=== PATIENT | female | born 1965 | race Caucasian/White ===

== ENCOUNTER 2020-02-28 21:06 | Inpatient (IN) | payer OTHER ==
[~2020-02-28] VITALS: Ht 160 cm; Wt 95.3 kg
[2020-02-28] MEDS ORDERED: LITHIUM CARBON150 MG PO (23:03)
[2020-02-28] MEDS ORDERED: OLANZAPINE10 MG PO (23:04)
[2020-02-28] MEDS ORDERED: HYDROCHLOROTHIA25 M1 PO (23:04)
--- NOTE | 2020-02-28 23:45 | NUR ---
VIKY HERNDAEZ a 55 year old F admitted via ambulance from the EMERGENCY ROOM as a emergency 72 hr. hold admission. Arrived on unit at 2345. ALLERGIES: BACTRIM. Vital signs are: [id number] 118/76. The client signed the following forms with stated understanding: Authorization For The Release of Medical Information, Clothing List, Consent and Release Forms/Receipt of Rights, Acknowledgement of Advance Directive Information, Behavioral Health Consent Form, and Informed Consent of Medications. Admitted under the services of [facility]. A search was conducted and hazardous articles were removed. Client was oriented to the unit. MADINA PEOPLES
--- NOTE | 2020-02-29 01:00 | NUR ---
DR. PIMENTEL UPDATED THAT PT ON UNIT
[2020-02-29 01:32] VITALS: BP 118/76
[2020-02-29 01:55] VITALS: BP 118/76
--- NOTE | 2020-02-29 02:10 | NUR ---
PT COOPERATIVE WITH ASSESSMENTS, STATED SHE JUST NEEDS TO STEP AWAY AND TAKES BREAKS, PT DID RAMBLE WITH SPEECH AND HAVE FLIGHT OF IDEAS. SPEECH PATTERN VARIED WITH SPEED RATE AND RYTHM, SHE IS AWARE HOW THE UNIT WORKS DUE TO MULTIPLE STAY AT IN PATIENT FACILITY. PT WOULD LAUGH IN APPROPRIATLY WITH INTERACTIONS. WHEN SHOWN HER ROOM SHE SHOUTED IN EXCITED CHILDLIKE VOICE "OH HOW FABULOUS, I HAVE BEEN WANTING TO SEE [facility] FOR SO LONG, I CAN'T BELIEVE I AM FINALLY HERE!" Pt states she is tired and did "fall asleep" randomly during assessment, put would answer select questions with increased energy then others. at this time pt is resting him her room, check q15 min checks. Continue to assist pt to adjust to unit.
--- NOTE | 2020-02-29 05:28 | NUR ---
Pt lying in bed laughing and talking outloud to self or unseen others. frequently. Laughing is not appropriate, pt unable to state what or who she is talking to. Continue to monitor, pt sleep has been broken due to restless and poor sleep pattern.
--- NOTE | 2020-02-29 05:49 | NUR ---
Patient slept approx. 2 hours throughout shift but then restless,laughing and talking out loud. Q 15 minute safety checks continued and maintained.
--- NOTE | 2020-02-29 06:12 | NUR ---
Patient having visual and auditory hallucinations at this time as per patient saying "Darnelle,clean this shit up. You heard them". Patient looking to other areas of the room while saying this. No one else in the room except patient and nurse. Will continue to monitor moods/behaviors
[2020-02-29 06:50] LABS: ALBUMIN 3.8 gm/dl (3.1-4.5); ALKALINE PHOSPHATASE 73 U/L (45-117); BUN 14 mg/dl (7-24); CHLORIDE 99 mmol/L (98-107); CHOLESTEROL 171 mg/dL (<200); CREATININE 0.97 mg/dL (0.55-1.02); HDL CHOLESTEROL 56 mg/dl (40-60); LDL CHOLESTEROL 97 mg/dL (9-159); SGOT/AST 44 IU/L (3-35); SGPT/ALT 29 U/L (12-78); SODIUM 134 mmol/L (136-145); TOTAL PROTEIN 7.9 gm/dL (6.4-8.2); TRIGLYCERIDES 92 mg/dl (<150); VLDL CHOLESTEROL 18 mg/dL (6-40)
[2020-02-29 06:53] LABS: BASO # 0.1 10*3/uL (0.0-0.1); BASO % 0.4 % (0.0-1.0); EOS # 0.3 10*3/uL (0.0-0.4); EOS % 2.4 % (1.0-4.0); HEMATOCRIT 37.5 % (37.0-47.0); HEMOGLOBIN 12.4 g/dl (12.0-16.0); LYMPH # 2.5 10*3/uL (1.3-4.4); LYMPH % 19.3 % (27.0-41.0); MEAN CELL VOLUME 89.7 fl (81.0-99.0); MEAN CORPUSCULAR HGB 29.7 pg (27.0-31.0); MEAN CORPUSCULAR HGB CONC 33.1 g/dl (33.0-37.0); MONO # 0.7 10*3/uL (0.1-1.0); MONO % 5.7 % (3.0-9.0); NEUT # 9.2 10*3/uL (2.3-7.9); NEUT % 71.8 % (47.0-73.0); PLATELET COUNT AUTOMATED 361 10*3/uL (130-400); RED BLOOD COUNT 4.18 10*6/uL (4.10-5.10); RED CELL DISTRI WIDTH 13.6 % (0-14.5); WHITE BLOOD COUNT 12.9 10*3/uL (4.8-10.8)
[2020-02-29 08:00] VITALS: BP 124/68
--- NOTE | 2020-02-29 08:25 | NUR ---
Patient awake and in room with no c/o discomfort. Respirations easy and regular. Vital signs stable. No overt distress. Frida Lopez, CHRISTIANE made aware of medical medications needing reconciled, states "ok". NIECY SALINAS
--- NOTE | 2020-02-29 08:30 | NUR ---
TREATMENT PLAN MEETING WAS HELD WITH DR. HARDIN, ROBER ADDISON RN, GAGE DESIGNER-S AND GLOBAL COMPENSATION DIRECTOR. PLAN FOR DISCHARGE NEXT WEEK. PT. WILL RETURN HOME.
--- NOTE | 2020-02-29 12:56 | NUR ---
Faxed admission clinical to [facility]. Awaiting response.
--- NOTE | 2020-02-29 13:36 | NUR ---
Patient was pleasant with this filing writer during initial contact. Pt stated that she was at [facility] because of professional overload. Pt also referred to this as professional burn-out later in the conversation. Pt stated that she is here for Dr Chen to fix her so that she can go home. When this filing writer attempted to comment on that, pt immediately stated, "I don't want to be babied. Everyone is babying me. I don't need that. I just want to be left alone to get better." When asked if this filing writer could assist pt with anything, pt stated that she wanted the puzzle that she was working on in the other room. It was determined that pt meant the foam blocks. This filing writer left pt with the foam blocks. After leaving pt in the fireplace room, as this filing writer stood behind the nurse's station, pt began talking loudly about what she needed for her care, that play therapy is for kids, and talking about people. It did not appear that pt was interacting with the unseen. Rather, it seemed that pt was speaking her thoughts out loud. During interaction with this filing writer, pt made no direct eye contact. She spoke calmly until left alone.
--- NOTE | 2020-02-29 18:23 | NUR ---
PT IS TANGENTIAL, LOUD, VULGAR SPEECH. PT IS OVERTLY TALKING TO UNSEEN OTHERS; HOWEVER, IT IS UNCLEAR AT THIS TIME IF PT IS ALSO RESPONDING. ASSESSED ORIENTATION LEVEL, MOOD, AFFECT. PT REDIRECTED AND PROVIDED WITH DIVERSIONAL ACTIVITIES. ASSESSED FOR HALLUCINATIONS/DELUSIONS/SI, INTENT OR PLAN. PT IS ALERT, ORIENTED X 4. MOOD IS IRRITABLE AND LABILE, AFFECT CONGRUENT WITH MOOD. PT IS REDIRECTABLE FOR SHORT PERIODS OF TIME, DIVERSIONAL ACTIVITIES OF COLORING ALSO EFFECTIVE FOR BRIEF PERIODS OF TIME. PT DENIES HALLUCINATIONS, BUT IS HYPERVERBAL AND TANGENTIAL, YELLING OUT LOUD AND TALKING TO UNSEEN OTHERS. PT DOES NOT APPEAR TO BE RESPONDING TO UNSEEN OTHERS AT THIS TIME. PT IS QUICKLY IRRITATED AND BEGINS TO YELL AND CUSS TO NOONE IN PARTICULAR. PT DOES DENY SUICIDAL IDEATION, INTENT AND PLAN. STATES SHE ISN'T DEPRESSED, BUT EVERYONE ELSE'S BRAIN IS "FROZEN" WHILE HERS KEEPS MOVING, "JUST LIKE MAGAN AND ANAMARIA". WILL CONTINUE TO ADMINISTER MEDICATIONS ORDERED. WILL CONTINUE TO MONITOR MOOD AND BEHAVIORS, REDIRECTING AND DIVERTING APPROPRIATE. WILL CONTINUE TO ENCOURAGE PT TO EXPRESS INTERNAL THOUGHT PROCESS. Q 15 MIN MONITORING FOR SAFETY.
[2020-02-29 20:01] VITALS: BP 129/81
--- NOTE | 2020-02-29 21:20 | NUR ---
P-LABILE, FOI, LOUD SPEECH, AUDITORY HALLUCINATIONS. I-ASSESS ORIENTATION, MOOD, AND BEHAVIOR. PRESENT REALITY AND REDIRECT NEEDED. PROVIDE 1:1 WITH THERAPEUTIC INTERVENTIONS. ENCOURAGE MEDICATION COMPLIANCE AND EDUCATE. MONITOR SLEEP. R-PATIENT ALERT AND ORIENTED X4. PT ISOLATIVE TO ROOM SINCE BEGINNING OF SHIFT, WHEN APPROACHED BY STAFF PATIENT GUARDED, IRRITABLE, STATING "SO YOU'RE BOTHERING ME NOW, WHEN ARE YOU GOING TO BOTHER ME AGAIN SO I KNOW AHEAD OF TIME?". PT OVERTLY TALKING TO UNSEEN OTHERS WHILE ALONE, LOUD, HYPERVERBAL, TANGENTIAL. PT RECEPTIVE TO REDIRECTION FOR SHORT PERIODS, ARGUMENTATIVE AT TIMES, NO COMBATIVE BEHAVIORS NOTED. PT MEDICATION COMPLIANT WITHOUT DIFFICULTY AFTER REVIEW. PT VOICES NO SI/HI OR PAIN. APPETITE REMAINS POOR THIS SHIFT, REFUSED HS SNACK, INTAKE AND FLUIDS ENCOURAGED. PT AMBULATORY WITH A STEADY GAIT, INDEPENDENT IN ADL'S, CONTINENT OF BOWEL AND BLADDER. PT CURRENTLY LAYING DOWN WITH EYES CLOSED, RESPIRATIONS EASY AND REGULAR, NO SIGNS OR SYMPTOMS OF DISTRESS NOTED. P-CONTINUE TO MONITOR MOOD AND BEHAVIORS. MAINTAIN Q 15 MIN CHECKS AND PRN FOR SAFETY.
--- NOTE | 2020-02-29 23:19 | NUR ---
24 HOUR CHART CHECK COMPLETED.
--- NOTE | 2020-03-01 04:17 | NUR ---
PATIENT AWAKE, REQUESTING BASIN AND TOILETRIES TO "WASH UP". PT ALSO ASKING QUESTIONS IN REGARDS TO HER TREATMENT TEAM. PT ASSISTED WITH BOTH INTERVENTIONS WITHOUT DIFFICULTY. PT THEN WENT TO DINING ROOM REQUESTED TO GET A CUP OF WATER AND WATCH TV. PT CURRENTLY SITTING AT A DINING ROOM TABLE, TALKING TO UNFORESEEN OTHERS. SPEECH LOUD, TANGENTIAL, WITH FOI. UNABLE TO REDIRECT AT THIS TIME, WILL CONTINUE TO MONITOR FOR ESCALATING BEHAVIORS.
--- NOTE | 2020-03-01 05:43 | NUR ---
PATIENT OBSERVED ON Q 15 MIN SAFETY CHECKS TO HAVE SLEPT APPROX 3.5 HOURS UNINTERRUPTED. NO SIGNS OR SYMPTOMS OF DISTRESS NOTED.
[2020-03-01 07:11] VITALS: BP 124/56
--- NOTE | 2020-03-01 08:13 | NUR ---
Patient eating with no c/o discomfort. Respirations easy and regular. Vital signs stable. No overt distress. Pt was provided with 1:1 throughout breakfast and pt was able to consume 100% of breakfast with 360cc of fluids. Pt able to express self t/o interaction, paranoid and tenriism delusions present. Pt presented with reality and provided with emotional support. NIECY SALINAS
--- NOTE | 2020-03-01 08:39 | NUR ---
PATIENT SIGNED VOLUNTARY CONSENT FORM. TREATMENT PROVIDED WITH PATEINT. PATIENT AGREEABLE TO CURRENT TREATMENT PLAN.
--- NOTE | 2020-03-01 09:48 | NUR ---
Treatment team meeting with Prema Isaacs BAKERY DECORATOR, RN, and SCOURER-S for initial meeting. Patient later joined treatment team with BAKERY DECORATOR, RN, and SCOURER-S. Discussed pt's plan for treatment and pt's goals. Discharge plan is for pt to return home next week and follow at [facility].
--- NOTE | 2020-03-01 10:08 | NUR ---
KENYATTA WONG CNP ON UNIT TO ASSESS PATIENT.
--- NOTE | 2020-03-01 11:23 | NUR ---
Patient participated in group activity this AM with 2 RNs and this TRAFFIC LAW ATTORNEY-S. Patient was hyperverbal as she shared about her work, education, family, likes and dislikes, places she had previously resided and visited. Pt's speech rate was normal to slightly rapid. Pt interacted well with staff but had low tolerance for another patient. She did express interest in others as she asked about likes/dislikes and also did express concern about high school seniors missing end of school year activities. Pt did voice repetitive thoughts as she spoke of her treatment plan numerous times.
--- NOTE | 2020-03-01 16:19 | NUR ---
Shift chart check completed.
--- NOTE | 2020-03-01 18:32 | NUR ---
PT IS HYPERVERBAL, TANGENTIAL, ANABAPTISM AND PARANOID DELUSIONAL. ASSESSED ORIENTATION LEVEL, MOOD, AFFECT. PT REDIRECTED AND PROVIDED WITH DIVERSIONAL ACTIVITIES. ASSESSED FOR HALLUCINATIONS/DELUSIONS/SI, INTENT OR PLAN. ADMINISTERED MEDICATIONS PER ORDER. PT IS ALERT, ORIENTED X 4. MOOD IS IRRITABLE AND LABILE, AFFECT CONGRUENT WITH MOOD. PT PARTICIPATED IN AM GROUP, HYPERVERBAL, BUT APPROPRIATE. ABLE TO FOCUS ON TASK WELL PROVIDE SOME INSIGHT INTO HER WORK AND MENTAL HEALTH. PT DENIES HALLUCINATIONS, BUT IS HYPERVERBAL AND TANGENTIAL, YELLING OUT LOUD TO "THE DEVIL" TO "GET ON OUT OF MY ROOM" OTHERS. PT DOES DENY SUICIDAL IDEATION, INTENT AND PLAN. STATES SHE ISN'T DEPRESSED. MEDICATION COMPLIANT WITHOUT DIFFICULTY, EDUCATION PROVIDED. WILL CONTINUE TO ADMINISTER MEDICATIONS ORDERED. WILL CONTINUE TO MONITOR MOOD AND BEHAVIORS, REDIRECTING AND DIVERTING APPROPRIATE. WILL CONTINUE TO ENCOURAGE PT TO EXPRESS INTERNAL THOUGHT PROCESS. Q 15 MIN MONITORING FOR SAFETY.
[2020-03-01 20:00] VITALS: BP 132/72
--- NOTE | 2020-03-01 23:01 | NUR ---
P-LABILE, IRRITABLE, FLIGHT OF IDEAS, TANGENTIAL, RELIGIOUSLY PREOCCUPIED I-REDIRECTION WITH 1:1 THERAPEUTIC INTERVENTIONS. EDUCATE AND ENCOURAGE MEDICATION COMPLIANCE. R-PATIENT MEDICATION COMPLIANT AT HS. PATIENT RESTLESS INTERMITTENTLY THROUGHOUT SHIFT. PATIENT PREOCCUPIED AND WANTING TO DISCUSS TREATMENT PLAN WITH THIS NURSE. PATIENT STATING "I GET THE BOOTY JUICE ON SATURDAY AND IT WILL BE FOR A MONTH AND THEN SATURDAY I GET ANOTHER SHOT OF THE BOOTY JUICE AND THEN REEVALUATION WILL BE DONE ON SATURDAY. PATIENT STATES "I'M ONLY HERE SO I CAN DECOMPRESS AND I TRUST DR AHRDIN AND IT WILL BE ALRIGHT. PATIENT IRRITABLE WHEN AROUND ANOTHER PEER. PATIENT IN HALLWAY STATING "THE LORD PLEASE BE WITH ME AND DO NOT LET HER UPSET MY DAY". PATIENT REDIRECTED AWAY FROM PEER AND THERAPEUTIC INTERVENTIONS WERE PROVIDED. PATIENT COLORED A PICTURE AND STATED "THIS IS A WORK OF ART". PATIENT IN QUEIT ROOM MAKING REPEATIVE STATEMENTS "CHICKENHEAD" AND "NAVEEN CROSS APPLESAUCE". PATIENT PROVIDED NOURISHEMENT AND FLUIDS AT HS. PATIENT INFORMED THAT URINE SPECIMENT STILL IS NEEDED FOR COLLECTION AND WILL INFORM THIS NURSE WHEN ABLE TO VOID. P-CONTINUE TO ENCOURAGE MEDICATION COMPIANCE, ENCOURAGE GROUP THERAPY WHILE AWAKE
[2020-03-02 02:47] LABS: COLOR STRAW (YELLOW)
[2020-03-02 02:48] LABS: BILIRUBIN NEGATIVE (NEGATIVE); BLOOD NEGATIVE (NEGATIVE); CLARITY CLEAR (CLEAR); GLUCOSE NEGATIVE (NEGATIVE); KETONE NEGATIVE (NEGATIVE); LEUKO ESTERASE NEGATIVE (NEGATIVE); NITRITE NEGATIVE (NEGATIVE); SPECIFIC GRAVITY 1.005 (1.005-1.030); UROBILINOGEN 0.2 E.U./dl (0.2-1.0)
[2020-03-02 02:50] LABS: BACTERIA TRACE; RBC 0-2 rbc/hpf (0-2); WBC 0-2 wbc/hpf (0-5)
--- NOTE | 2020-03-02 06:51 | NUR ---
PATIENT SLEPT 4 HOURS OF INTERRUPTED SLEEP THROUGHOUT SHIFT. Q 15 MINUTE CHECKS MAINTAINED. 24 HR chart check completed.
[2020-03-02 07:36] VITALS: BP 126/58
--- NOTE | 2020-03-02 07:40 | NUR ---
Patient pleasant with this medical underwriter this AM as pt reviewed her treatment plan. Discussed pt's FMLA document. Took pt's breakfast tray to her and placed it where pt requested. Pt voiced appreciation. As this CORPORATE LEGAL INTERN-S walked away, pt stated to herself when she saw another pt's tray being taken to another room, "We don't need to be eating at the same time. We don't need to eat together. She's going to put mini monsters on my food." Observed pt take her own tray tray and move to the back of the activity room. Pt then stood midway in the room and began speaking loudly, "Get behind me, satan. Get behind me, satan."
--- NOTE | 2020-03-02 07:50 | NUR ---
Patient feeding self breakfast at this time. Respirations easy and regular. Vital signs stable. No overt distress. Update given to Delio PHTNP-. EDI YOUNG
--- NOTE | 2020-03-02 08:30 | NUR ---
TREATMENT PLAN MEETING WAS HELD WITH ROBER ADDISON RN, NOVELTY PRINTING MACHINE OPERATOR-S AND BAKE ROOM WORKER. PLAN FOR DISCHARGE NEXT WEEK. PT. WILL RETURN HOME AT DISCHARGE.
--- NOTE | 2020-03-02 09:25 | NUR ---
SPOKE WITH AZAEL DEL TORO CHIEF MECHANICAL OFFICER REGARDING PT REQUESTING TO WATCH THE NEWS, AZAEL STATED THAT DUE TO THE LIMITED CENSUS. PT IS ABLE TO WATCH THE NEWS 30 MINS IN THE MORNING AND 30 MINS AT NIGHT. WE WILL CONTINUE TO MONITOR PT BEHAVIORS FOR ANY INCREASED AGITATION OR ANXIETY.
--- NOTE | 2020-03-02 09:45 | NUR ---
PT RECEIVED INVEGA SUSTENNA TO LEFT DELTOID, TOLERATED WITHOUT ISSUE.
--- NOTE | 2020-03-02 09:51 | NUR ---
AZAEL DEL TORO DIRECTOR DATA ANALYTICS CALLED IN AND STATED THAT AFTER SPEAKING WITH DR HARDIN HE HAS DECIDED THAT THERE IS NOT TO BE ANY TIME RESTRICTIONS ON WATCHING THE NEWS, IF IT BEGINS TO ADD TO PT DELUSIONS THEN WE PROCESS THESE WITH THE PT AND MONITOR IT ON A CASE BY CASE BASIS. NO FURTHER ORDERS AT THIS TIME.
--- NOTE | 2020-03-02 11:30 | NUR ---
Pt participated in activity in group room this AM with this RN, second RN and CONCRETE FINISHING MACHINE OPERATOR-S, pt actively participated and painted a birdhouse. Pt was pleasant with staff, attempted to encourage female peer to participate as well. Pt calmly and appropriately voiced her desire to maintain her "personal space" when female peer got too close. Pt seemed to enjoy socializing with staff about different shops and places to eat around this area and in the [place] area. Pt also spoke about her work and schooling.
--- NOTE | 2020-03-02 13:03 | NUR ---
Patient participated in AM group with two RNs and this CONCRETE MIXER OPERATOR HELPER-S. Pt was focused and easily engaged in conversation. Observed pt being more understanding with other female pt. This technical publications writer observed pt making one statement that was nonsensical but other statements/remarks voiced by pt were appropriate.
--- NOTE | 2020-03-02 15:49 | NUR ---
P: PT IRRITABLE AT TIMES WITH STAFF AND PEERS, MOOD IS LABILE. PT DISRUPTIVE THIS AM DURING BREAKFAST YELLING OUT "GET BEHIND ME SATAN GET BEHIND ME." PT OBSERVED TO BE TALKING TO AND RESPONDING TO UNSEEN OTHERS. PT PREOCCUPIED WITH TREATMENT PLAN AND MEDICATION. I: PROVIDE EMOTIONAL SUPPORT AND 1:1 FOR PT TO VOICE FEELINGS, ENCOURAGE MED COMPLIANCE AND PROVIDE MED EDUCATION, ENCOURAGE GROUP PARTICIPATION AND SOCIALIZATION. R: PT ALERT TO PERSON, PLACE, TIME AND SITUATION. PT MED COMPLIANT WITHOUT DIFFICUTLY, MED EDUCATION PROVIDED. PT CALM, MOOD REMAINS LABILE AT TIMES, MUCH LESS IRRITABLE THIS AFTERNOON WITH STAFF AND PEERS. PT PARTICIPATED IN MORNING GROUP WITH STAFF. PT CONTINUES TO TALK TO AND RESPOND TO UNSEEN OTHERS AT TIMES. PT AMBULATORY THROUGHOUT UNIT, GAIT STEADY. PT CONTINENT OF BOWEL AND BLADDER. PT SHOWERED THIS SHIFT, PT INDEPENDENT WITH ADL'S. P: MONITOR PT BEHAVIORS ON Q15 MIN SAFETY CHECKS, ENCOURAGE MED COMPLIANCE, PROVIDED PT WITH MEDICINE EDUCATION HANDOUTS, PROVIDE EMOTIONAL SUPPORT AND 1:1 FOR PT TO VOICE FEELINGS, ENCOURAGE GROUP PARTICIPATION AND SOCIALIZATION.
[2020-03-02 20:00] VITALS: BP 109/78
--- NOTE | 2020-03-02 21:45 | NUR ---
P-TANGENTIAL, PREOCCUPIED I-REDIRECTION WITH 1:1 THERAPEUTIC INTERVENTIONS. EDUCATE AND ENCOURAGE MEDICATION COMPLIANCE. R-PATIENT MEDICATION COMPLIANT AT HS. PATIENT INFORMED THIS NURSE "I GOT MY BOOTY JUICE IN MY ARM AND IT DOESN'T HURT. MY MOUTH IS JUST DRY BUT THE NURSE TOLD ME TO KEEP DRINKING WATER OR HAVE ICE CHIPS". PATIENT STATING "I FEEL SO MUCH BETTER TODAY". PATIENT IN HALLWAY WITH BRIEF INTERACTIONS WITH OTHER FEMALE PEER WITH ANY IRRITABILITY. PATIENT TALKED ON TELEPHONE WITH FAMILY MEMBERS AND PREOCCUPIED WITH GETTING NEW LOCKS ON DOORS FOR HER HOME. PATIENT ASKING THIS NURSE "CAN I HAVE MY PHONE TO AVILA NATAN MY FAMILY MONEY". THIS NURSE INFORMED PATIENT THAT SHE SHOULD HANDLE FINANCES WITH GEAR TOOTH GRINDING MACHINE OPERATOR IN AM. PATIENT WAS ABLE TO REACH OUT TO FAMILY TO HELP WITH GETTING LOCKS. PATIENT APPROACHED THIS NURSE ABOUT THE CRAFTS THAT SHE DID FOR THE DAY. PATIENT STATING "I GOT IT NOW. MY BIOLOGICAL CLOCK WAS MESSED UP BUT IT IS BETTER NOW. THAT IS WHAT WAS WRONG. IT WAS IN MILLIMETERS. I'M GOING TO GO TO SLEEP NOW AND I WILL SEE YOU IN THE AM. P-CONTINUE TO ENCOURAGE MEDICATION COMPIANCE, ENCOURAGE GROUP THERAPY WHILE AWAKE
--- NOTE | 2020-03-02 23:00 | NUR ---
PATIENT UP AT NURSE'S STATION WITH FLIGHT OF IDEAS. PATIENT STATING "MY MIND IS NOT RACING, IT JUST FLIGHT OF IDEAS. I FIGURED IT OUT. THE ALPHA IS IN THE FRONT THE OMEGA IN THE BACK AND THE CAPPADIAMOND IS IN THE MIDDLE. PATIENT IN DINING AREA TO TAKE ICE CHIPS BACK TO ROOM. PATIENT VOICES NO COMPLAINTS AT THIS TIME.
--- NOTE | 2020-03-03 03:38 | NUR ---
PATIENT HYPERVERBAL AND WITH FLIGHT OF IDEAS. PATIENT OVERHEARD TALKING TO SELF. THIS NURSE ASKED PATIENT WHO PATIENT WAS CONVERSATING WITH AND PATIENT STATED "MYSELF. I HAVE TALKED TO MY SELF SINCE I WAS A CHILD. I ANSWER MYSELF TO AND ITS OK LONG THE ANSWER IS ALWAYS RIGHT". PATIENT UNBRAIDING HAIR IN DINING AREA. PATIENT STATING "HOW CAN A 55 YEAR OLD WOMAN BE LOST? MAYBE I JUST NEEDED A BREAK AND THAT'S WHY I WENT TO THE [facility]OTEL". PATIENT STATING "I JUST NEED TO LET IT OUT. PATIENT PROVIDED NOURSHMENT AND FLUID THROUGHOUT SHIFT. THIS NURSE TALKED TO PATIENT ABOUT TALKING TO THE DOCTOR ABOUT POSSIBLE BENEFIT OF A SLEEP AID. PATIENT AGREED THAT IT WOULD BE FINE TO TALK TO THE DOCTOR TO SEE IF SOMETHING FOR SLEEP COULD BE ORDERED.
--- NOTE | 2020-03-03 06:49 | NUR ---
PATIENT SLEPT 1-2 HOURS OF INTERRUPTED SLEEP THROUGHOUT SHIFT. Q 15 MINUTE CHECKS MAINTAINED. 24 HR chart check completed.
[2020-03-03 07:21] VITALS: BP 117/61
--- NOTE | 2020-03-03 07:30 | NUR ---
Patient eating breakfast in dining room at this time. Respirations easy and regular. Vital signs stable. No overt distress. EDI YOUNG
--- NOTE | 2020-03-03 08:15 | NUR ---
on unit to see pt at this time.
--- NOTE | 2020-03-03 08:52 | NUR ---
PT A&O X4. MOOD IS EUPHORIC. INTERACTIVE [facility] STAFF. GOAL DIRECTED AND ORGANIZED. PT SITTING IN DAY ROOM PAINTING AND LISTENING TO MUSIC. PATIENT STATED PAINTING IS CALMING FOR HER. NO HALLUCINATIONS OR DELUSIONS NOTED. APPETITE IS GOOD. MEDICATION COMPLIANT WITHOUT DIFFICULTY. AMBULATORY WITH A STEADY GAIT. DENIES PAIN. SEE [facility] FLOWSHEET FOR SPECIFIC MONITORING.
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
[2020-03-03 19:55] VITALS: BP 119/62
--- NOTE | 2020-03-03 21:33 | NUR ---
P-RACING THOUGHTS, C/O POOR SLEEP I-1:1 FOR VENTILATION OF FEELINGS & EMOTIONAL SUPPORT, PRN BELLE 8MG @ 2025 FOR ASSISTANCE WITH SLEEP. MONITOR SLEEP R-PT IS MILDLY ELATED. ALERT & ORIENTED X 4. DENIES DEPRESSION & STATED THAT SHE IS 0\\10 FOR DEPRESSION & 3/10 FOR ANXIETY. STATED HER THOUGHTS ARE MORE ORGANIZED. 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 ATE SNACK. COMPLIANT WITH MEDS. WHILE RESTING IN BED, SHE USED BED ALARM & TOLD THIS ORACLE DATABASE ADMINISTRATOR, "MY MIND IS SO FULL. I WOKE FROM SLEEP. SOMETIMES I FEEL LIKE I'M ON A [place]LEFIELD IN THE . LIKE PTSD. I WANTED TO TELL YOU BECAUSE I WANT THE DR TO KNOW, IN CASE I FORGET TO TELL HIM TOMORROW. I HAVE RACING THOUGHT WHEN I'M LAYING DOWN". ATE SNACK. COMPLIANT WITH MEDS. P-CONTINUE TO MONITOR
--- NOTE | 2020-03-03 22:17 | NUR ---
PT HAS BEEN RESTLESS. SITTING IN THE DINING ROOM & NOTED TO BE TALKING OUTLOUD TO HERSELF. WHEN ASKED IF SHE WAS OK, SHE STATED, "YES, I'M JUST FINE. I FIGURED IT OUT. I'M PUTTING THINGS IN COMPARTMENTS & DESTRESSING MYSELF. I FEEL BETTER SITTING UP. WHEN I LAY DOWN I FEEL LIKE I'M GONNA THROW UP. I THINK THAT DOSE OF MEDICINE THE DR GAVE ME WAS TOO MUCH".
--- NOTE | 2020-03-04 00:41 | NUR ---
24 HR chart check completed.
--- NOTE | 2020-03-04 04:32 | NUR ---
PT AWAKE AT THIS TIME & ASKED FOR TOILET PAPER. STATED THAT SHE FEELS THE ROZEREM SHE TOOK LAST NIGHT DIDNT WORK THAT WELL & MADE HER NAUSEOUS. PT HAS SLEPT INTERMITTENTLY THROUGHOUT THE NIGHT SLEEPING APPROX. 4 HOURS.
[2020-03-04 08:00] VITALS: BP 119/72
--- NOTE | 2020-03-04 09:12 | NUR ---
TREATMENT PLAN MEETING WAS HELD WITH DR. HARDIN, ROBER ADDISON RN AND GEAR REPAIR SUPERVISOR. PLAN FOR DISCHARGE SATURDAY. PT. WILL RETURN HOME WITH FOLLOW UP CARE.
--- NOTE | 2020-03-04 13:50 | NUR ---
P: HYPERVERBAL AND MANIC I: ONE ON ONE, REDIRECTION, ENCOURAGE GROUP/INDIVIDUAL THERAPY, MEDICAITON EDUCATION. R: EFFECTIVE. PATIENT LISTENING TO MUSIC AND COLORING PICTURE PAGES. PATIENT IS ALERT TO PERSON, PLACE, TIME AND SITUATION; ABLE TO VOICE NEEDS. MOOD IS EUTHYMIC AND ANXIOUS. DENIES ANY HALLUCINATIONS, DELUSIONS, HI/SI OR PAIN. INDEPENDENT WITH ACTIVITIES OF DAILY LIVING, CONTINENT OF BOWEL AND BLADDER. SET UP FOR MEALS, INTAKES ARE GOOD. AMBULATORY WITH STEADY GAIT. MEDICATION COMPLAINT WITH EDUCATION PROVIDED. Q 15 MINUTE SAFETY CHECKS PROVIDED. P: CONTINUE TO MONITOR FOR HALLUCINATIONS, DELUSIONS; RESPONDING TO INTERNAL STIMULI. PROVIDE ONE ON ONE, REDIRECTION AND ACTIVITIES TO HELP ASSIST WITH ANXIETY.
[2020-03-04 19:44] VITALS: BP 129/71
--- NOTE | 2020-03-04 19:59 | NUR ---
24 HR chart check completed.
--- NOTE | 2020-03-04 21:52 | NUR ---
P-C/O FEELING TIRED I-1:1 FOR VENTILATION OF FEELINGS & EMOTIONAL SUPPORT, MONITOR SLEEP, ADMINISTER MEDS. R-PT IS EUTHYMIC & LESS MANIC. ALERT & ORIENTED X 4. DENIES DEPRESSION & RATED IT 0\10 & 2/10 FOR ANXIETY. STATED HER THOUGHTS ARE MORE ORGANIZED. VERY PLEASANT WITH STAFF & VERBAL INTERACTIONS. SPOKE TO HER DAUGHTER ON THE PHONE. STATED THAT SHE WAS TIRED & WAS GOING TO GET SOME SLEEP TONIGHT. ATE SNACK. COMPLIANT WITH MEDS. P-CONTINUE TO MONITOR
--- NOTE | 2020-03-05 06:45 | NUR ---
PT WAS SLEEPING @ 2130 & HAS SLEPT APPX 4-5 HOURS.
[2020-03-05 07:46] VITALS: BP 115/58
--- NOTE | 2020-03-05 07:52 | NUR ---
Patient eating breakfast at this time in dining room with peers. Respirations easy and regular. Vital signs stable. No overt distress. EDI YOUNG-BC on unit to see pt at this time, update given.
--- NOTE | 2020-03-05 09:14 | NUR ---
PT REQUESTED A COPY OF HER PINK SLIP AT THIS TIME. PINK SLIP PROVIDED TO PT.
--- NOTE | 2020-03-05 09:25 | NUR ---
Jonathan DOOR ATTENDANT on unit to see pt at this time, update given.
--- NOTE | 2020-03-05 09:26 | NUR ---
Invega Sustenna 156mg IM given to right deltoid at this time, site chosen per pt preference. Pt tolerated well.
--- NOTE | 2020-03-05 10:30 | NUR ---
AM GROUP - GOAL SETTING. Spent time talking with pts in group setting re: setting goals for the day. Encouraged pt to set short term goal that can be accomplished this date. Pt states "my goal for today was to get my injection, I did that. I'm sticking to plan to get out of here Saturday".
--- NOTE | 2020-03-05 15:20 | NUR ---
PM GROUP - STRETCHING/CHAIR YOGA. Pt actively participated in stretching and chair yoga activity. Pt smiling, laughing and interacting appropriately with staff and peers.
--- NOTE | 2020-03-05 17:40 | NUR ---
P- Pt c/o feeling tired, less hyperverbal. I- Orientation, mood and behaviors assessed. Assessed pt for SI/HI, intent or plan. Assessed pt for s/s hallucinations, paranoia and/or delusions. Medications administered as per physician's orders. Encouraged pt to attend and participate in butcher milieu groups and activities. R- Pt is A&Ox4. Memory intact. Resps easy and even on room air. Mood is stable, euthymic, affect broad range and appropriate. Speech is loud at times, coherent, able to make needs known without difficulty. Less hyperverbal. Interacts well with staff and peers. Pt denies SI/HI, intent or plan. Pt denies hallucinations, no response to internal stimuli noted. No paranoia or delusions noted. Medication compliant without difficulty. Pt is goal directed, states she is ready for hospital discharge on Saturday. Pt c/o feeling tired intermittently t/o shift but states "it's probably just my body getting used to these new medicines. I know I need to give it a few weeks to all get regulated in my system". Pt taking intermittently rest periods t/o shift. No distress noted. P- Plan to continue current treatment, continue to monitor mood and behaviors, provide appropriate reorientation, redirection and 1:1 as needed. Continue to encourage medication compliance as well as group attendance and participation.
--- NOTE | 2020-03-05 17:47 | NUR ---
shift chart check completed.
[2020-03-05 19:31] VITALS: BP 144/67
--- NOTE | 2020-03-05 19:34 | NUR ---
24 HR chart check completed.
--- NOTE | 2020-03-05 21:44 | NUR ---
PT IS STABLE. EUTHYMIC MOOD. PLEASANT INTERACTIONS WITH STAFF & PEERS. ALERT & ORIENTED X 4. SHE IS CALM. DENIES FEELING DEPRESSED. RATED ANXIETY 2/10. STATED SHE IS FEELING "BETTER. I HAD MY BOOTIE JUICE TODAY. I'M DOIN GOOD. I PLAN ON TALKIN TO THE DOC ON ON SATURDAY & GETTIN DISCHARGED". DENIES SENSORY DISTURBANCE & THERE IS NO SIGNS/SYMPTOMS NOTED. APPETITE IS EXCESSIVE. COMPLIANT WITH MEDICATIONS. SHE IS RECEPTIVE TO DISCUSSING POSITIVE COPING MODES AFTER DISCHARGE & PLANS ON RETURNING TO WORK. SHE FEELS HER MEDICATIONS ARE WORKING WELL FOR HER.
--- NOTE | 2020-03-06 04:54 | NUR ---
PT HAS SLEPT PAST 2130 TO 0500 WITH 4 BRIEF AWAKENINGS TO GO TO THE BATHROOM OR REQUEST ICE CHIPS FOR C/O DRY MOUTH.
[2020-03-06 07:28] VITALS: BP 130/84
--- NOTE | 2020-03-06 07:37 | NUR ---
Patient eating breakfast in dining room with peers, feeding self. Respirations easy and regular. Vital signs stable. No overt distress. EDI YOUNG-RAJ on unit to see pt at this time, update given.
--- NOTE | 2020-03-06 10:30 | NUR ---
AM GROUP - GOAL SETTING. Spoke with pt's in group setting regarding setting goal for the day that can be accomplished this date. Pt states her goal for the day is to walk a mile/set number of laps around the unit for exercise. Pt has already begun working on accomplishing this goal.
--- NOTE | 2020-03-06 15:30 | NUR ---
PM GROUP - STRETCHING/CHAIR YOGA. Pt actively participated in stretching and chair yoga activity. Pt smiling, laughing and interacting appropriately with staff and peers.
--- NOTE | 2020-03-06 18:43 | NUR ---
No adverse moods/behaviors this shift. Pt is A&Ox4. Memory intact. Resps easy and even on room air. Mood is stable, euthymic, affect is broad range and appropriate. Speech WNL and coherent, able to make needs known without difficulty. Pt interacts well with staff and peers. Pt denies SI/HI, intent or plan. Pt denies hallucinations, no response to internal stimuli noted. No paranoia or delusions noted. Med compliant without difficulty. Organized and goal directed. Pt is looking forward to speaking with tomorrow re: hospital discharge as per her previously discussed conversations with him regarding plan to go home Saturday. Pt showered this date. No distress noted. Plan to continue current tx, continue q15 min monitoring.
--- NOTE | 2020-03-06 18:47 | NUR ---
Shift chart check completed.
[2020-03-06 19:33] VITALS: BP 133/79
--- NOTE | 2020-03-06 23:42 | NUR ---
PATIENT ALERT AND ORIENTED. PATIENT WITH NO SHORT TERM OR FIRST COAT OPERATOR MEMORY GAPS AT THIS TIME. PATIENT WITH NO RESPIRATORY DISTRESS. PATIENT WITH NO HALLUCINATIONS OR DELUSIONS. PATIENT WITH NO SUICIDAL OR HOMICIDAL IDEATIONS. PATIENT MOOD IS STABLE. PATIENT PROVIDED NOURISHMENT AND FLUIDS AT HS. PATIENT WITH COMPLIANT OF NOT BEING ABLE TO GO TO SLEEP. PATIENT REQUEST VISTARIL. VISTARIL 50MG GIVEN WITH INEFFECTIVE RESULTS AT THIS TIME. PATIENT STATING "I'M LAYING DOWN, I'M JUST NOT GETTING GOOD REST RIGHT NOW". PATIENT MEDICATION COMPLIANT AT HS. SEE [facility] FLOW SHEET FOR SPECIFIC MONITORING
--- NOTE | 2020-03-07 05:44 | NUR ---
PATIENT SLEPT 5 HOURS OF INTERRUPTED SLEEP THROUGHOUT SHIFT. Q 15 MINUTE CHECKS MAINTAINED. 24 HR chart check completed.
[2020-03-07 06:13] LABS: BASO # 0.1 10*3/uL (0.0-0.1); BASO % 0.4 % (0.0-1.0); EOS # 0.3 10*3/uL (0.0-0.4); EOS % 2.9 % (1.0-4.0); HEMATOCRIT 37.6 % (37.0-47.0); HEMOGLOBIN 11.8 g/dl (12.0-16.0); LYMPH # 3.4 10*3/uL (1.3-4.4); LYMPH % 28.7 % (27.0-41.0); MEAN CELL VOLUME 93.3 fl (81.0-99.0); MEAN CORPUSCULAR HGB 29.3 pg (27.0-31.0); MEAN CORPUSCULAR HGB CONC 31.4 g/dl (33.0-37.0); MEAN PLATELET VOLUME 9.7 fl (9.6-12.3); MONO # 0.6 10*3/uL (0.1-1.0); MONO % 5.2 % (3.0-9.0); NEUT # 7.3 10*3/uL (2.3-7.9); NEUT % 62.3 % (47.0-73.0); PLATELET COUNT AUTOMATED 381 10*3/uL (130-400); RED BLOOD COUNT 4.03 10*6/uL (4.10-5.10); RED CELL DISTRI WIDTH 14.2 % (0-14.5); WHITE BLOOD COUNT 11.8 10*3/uL (4.8-10.8)
[2020-03-07 06:18] LABS: BUN 12 mg/dl (7-24); CHLORIDE 109 mmol/L (98-107); CREATININE 0.89 mg/dL (0.55-1.02); POTASSIUM 3.7 mmol/L (3.5-5.1); SODIUM 143 mmol/L (136-145)
--- NOTE | 2020-03-07 07:15 | NUR ---
KENYATTA WONG CNP NOTIFIED OF PATIENT BEING DISCHARGED TODAY.
[2020-03-07 08:00] VITALS: BP 123/68
--- NOTE | 2020-03-07 09:09 | NUR ---
KENYATTA WONG CNP ON UNIT TO ASSESS PATIENT.
[2020-03-07] MEDS ORDERED: DIVALPROEX SOD500 MG PO (09:14)
[2020-03-07] MEDS ORDERED: INVEGA SUSTENN156 MG IM (09:14)
[2020-03-07] MEDS ORDERED: BENZTROPINE ME0.5 MG PO (09:14)
[2020-03-07] MEDS ORDERED: MIRTAZAPINE15 M2 PO (09:14)
--- NOTE | 2020-03-07 09:15 | NUR ---
KENYATTA WONG MELANGEUR OPERATOR ON UNIT TO ASSESS PT, UPDATE PROVIDED.
--- NOTE | 2020-03-07 09:35 | NUR ---
Treatment Plan meeting was held with Prema Pop NP, RN, BUSINESS LIAISON OFFICER-S and Manager Council. Plan for discharge today with return home. Pt. will follow with [facility] with Phone Appointment 03/09/[address] at 1:[address] Chen Office with Call Patient. Pt. is to call her PCP to schedule an appointment for follow up [phone] Garcia Policy that Patient must call themselves.
--- NOTE | 2020-03-07 09:54 | NUR ---
SPOKE WITH MAYNOR AT [facility], SCRIPTS FOR VISTARIL CALLED IN PER AZAEL DEL TORO REQUEST.
--- NOTE | 2020-03-07 09:58 | NUR ---
Met with pt this AM. Discussed her current status. Pt stated that she feels ready for discharge. Discussed the importance of self-care and pt taking time for herself when she begins her work schedule again. Discussed pt's coping skills for life/work stressors. Pt stated that she plans on going for walks, using meditation, and having scheduled massages.
--- NOTE | 2020-03-07 11:59 | NUR ---
Patient discharged to home today. Follow-up was scheduled with [facility]. While at [facility], pt's psychosis resolved. Pt was no longer manic. Pt participated in treatment and groups and was motivated to improve.
--- NOTE | 2020-03-07 12:00 | NUR ---
PT DISCHARGED TO HOME VIA [facility], DISCHARGE PACKET AND PT BELONGINGS SENT WITH PT. PT ALERT TO PERSON, PLACE, TIME AND SITUATION. PT MED COMPLIANT WITHOUT DIFFICULTY, MED EDUCATION PROVIDED. PT CALM, MOOD IS STABLE, PLEASANT AND INTERACTIVE WITH STAFF AND PEERS. PT GOAL DIRECTED TOWARDS DISCHARGE. PT DENIES ANY HALLUCINATIONS, DELUSIONS OR SUICIDAL THOUGHTS. NO SKIN ISSUES OR WOUNDS NOTED. PT AMBULATORY THROUGHOUT UNIT, GATI STEADY. PT CONTINENT OF BOWEL AND BLADDER.
--- NOTE | 2020-03-07 14:32 | NUR ---
PT SISTER CALLED IN AND ADVISED THAT PT DID NOT RECEIVE A SCRIPT FOR HER HOME MED LITIUM. THIS WAS A NEW MED FOR THE PT PRIOR TO COMING HERE WHEN SHE WAS DISCHARGED FROM [facility] AND THEY ONLY GAVE HER ENOUGH FOR A FEW DAYS. SPOKE WITH AZAEL DEL TORO NP, PERMISSION RECEIVED TO CALL THIS MEDICATION INTO PTS PHARMACY.
--- NOTE | 2020-03-07 14:36 | NUR ---
SPOKE WITH MAYNOR AT PTS [facility], LITHIUM CALLED IN. NOTIFIED PT THAT MED WAS CALLED INTO HER PHARMACY.
--- NOTE | 2020-03-08 07:34 | NUR ---
Faxed continued review stay and discharge clinical
== END 2020-03-07 12:00 | disposition home or self-care (01) | DRG 885 ==
LOC: 3N 21:06
PROVIDERS: Nurse Practitioner Women's Health; Registered Nurse; ADMIT Psychiatry & Neurology Psychiatry
DX: F31.2 Bipolar disorder, current episode manic severe with psychotic features (principal); F23 Brief psychotic disorder; E87.1 Hypo-osmolality and hyponatremia; I10 Essential (primary) hypertension; E87.6 Hypokalemia; F43.10 Post-traumatic stress disorder, unspecified; F41.9 Anxiety disorder, unspecified; D72.829 Elevated white blood cell count, unspecified; R73.9 Hyperglycemia, unspecified; Z88.1 Allergy status to other antibiotic agents; Z88.8 Allergy status to other drugs, medicaments and biological substances; Z80.3 Family history of malignant neoplasm of breast; Z82.3 Family history of stroke; Z79.899 Other long term (current) drug therapy